=== PATIENT | male | born 1990 | race Caucasian/White ===

== ENCOUNTER 2017-10-06 01:01 | Emergency (ER) | payer BC ==
[~2017-10-06] VITALS: Ht 180.3 cm; Wt 84.1 kg
[2017-10-06 01:05] VITALS: BP 136/80; TEMP 99.1
[2017-10-06] MEDS ORDERED: GLUCOSAMINE 1000 PO (01:08)
[2017-10-06] MEDS ORDERED: MOBIC 7.5MG7.5 MG PO (01:08)
[2017-10-06] MEDS ORDERED: MULTIVITAMIN1 CTB PO (01:08)
[2017-10-06 01:34] LABS: HEMATOCRIT 43.3 % (42.0-52.0); HEMOGLOBIN 15.1 g/dl (13.5-18.0); MEAN CELL VOLUME 92 fl (80.0-100.0); MEAN CORPUSCULAR HEMOGLOBIN 32 pg (27.0-31.0); MEAN CORPUSCULAR HGB CONC 35 g/dl (33.0-37.0); MEAN PLATELET VOLUME 10.2 fl (7.4-10.4); PLATELET COUNT 283 K/mm3 (130-400); RED BLOOD COUNT 4.73 M/mm3 (4.20-5.60); REDCELL DISTRIBUTION WIDTH-CV 12.4 % (11.5-14.5)
[2017-10-06 01:43] LABS: ALBUMIN 4.7 gm/dL (3.5-5.0); BILIRUBIN,TOTAL 0.6 mg/dL (0.0-1.0); CALCIUM 9.7 mg/dL (8.4-10.2); CREATININE, serum 1.15 mg/dL (0.66-1.25); POTASSIUM 4.3 mmol/L (3.4-5.0); TOTAL PROTEIN 7.9 gm/dL (6.4-8.2)
[2017-10-06 01:44] LABS: BAND 41 % (0-10); LYMPHOCYTE 19 % (20.0-51.0); NEUTROPHILS 29 % (42.0-75.2); PLATELET ESTIMATE NORMAL (NORMAL)
[2017-10-06 02:07] LABS: COLLECTION METHOD CLEAN CATCH
[2017-10-06 02:14] LABS: MUCOUS Present /lpf; PH 6 (5-8); SQUAMOUS EPITHELIAL None Seen /hpf; URINE APPEARANCE Clear; URINE BACTERIA None Seen /hpf; URINE BILIRUBIN Negative (NEGATIVE); URINE BLOOD Negative (NEGATIVE); URINE COLOR Yellow; URINE GLUCOSE Negative (NEGATIVE); URINE KETONE Negative (NEGATIVE); URINE LEUKOCYTE ESTERASE Negative (NEGATIVE); URINE NITRATE Negative (NEGATIVE); URINE PROTEIN(semi-quant) Negative (NEGATIVE); URINE RBC 0-2 /hpf; URINE UROBILINOGEN Negative (NEGATIVE)
[2017-10-06] MEDS ORDERED: CIPRO 500MG TA500 MG PO (03:17)
[2017-10-06] MEDS ORDERED: FLAGYL500 MG PO (03:17)
[2017-10-06 03:44] VITALS: PULSE 80
== END 2017-10-06 03:47 | disposition home or self-care (01) ==
LOC: COL.ER 01:01
PROVIDERS: Emergency Medicine
DX: K52.9 Noninfective gastroenteritis and colitis, unspecified (principal); Z87.19 Personal history of other diseases of the digestive system; Z90.49 Acquired absence of other specified parts of digestive tract
CPT/HCPCS: J2765; J3010; J7030; Q9967

== ENCOUNTER 2017-10-08 06:18 | Day surgery (SDC) | payer BC ==
[~2017-10-08] VITALS: Ht 180.3 cm; Wt 82.9 kg
[~2017-10-08 06:18] MED LIST: CIPRO 500MG TA500 MG PO; FLAGYL500 MG PO; GLUCOSAMINE 1000 PO; MOBIC 7.5MG7.5 MG PO; MULTIVITAMIN1 CTB PO
[2017-10-08 06:34] VITALS: BP 149/90; PULSE 78; TEMP 98.4
[2017-10-08] MEDS ORDERED: CIPRO 500MG TA500 MG PO (07:02)
[2017-10-08] MEDS ORDERED: FLAGYL500 MG PO (07:03)
[2017-10-08 08:10] VITALS: BP 117/76; PULSE 67; TEMP 98
[2017-10-08 08:15] VITALS: BP 122/79; PULSE 70
[2017-10-08] MEDS ORDERED: LIALDA 1.2 GM1.2 GM PO (08:22)
[2017-10-08 08:30] VITALS: BP 117/69; PULSE 63
[2017-10-08 08:45] VITALS: BP 113/52; PULSE 70
== END 2017-10-08 09:10 | disposition home or self-care (01) ==
LOC: SDCO 06:18
DX: K51.90 Ulcerative colitis, unspecified, without complications (principal); R19.7 Diarrhea, unspecified; R93.3 Abnormal findings on diagnostic imaging of other parts of digestive tract; Z90.49 Acquired absence of other specified parts of digestive tract
CPT/HCPCS: J2250; J2405; J3010; J7030

== ENCOUNTER 2018-12-12 05:08 | Observation (INO) | payer BC ==
[2018-12-12] VITALS (9 sets, daily range): BP systolic 17–117; BP diastolic 46–68; PULSE 53–72; TEMP 98.3–99
[~2018-12-12] VITALS: Ht 177.8 cm; Wt 80.7 kg
[~2018-12-12 05:08] MED LIST changes: +LIALDA 1.2 GM1.2 GM PO
[2018-12-12 05:36] LABS: BASO # 0.1 (0.0-0.2); BASO % 0.5 % (0.0-2.0); EOS # 0.2 (0.0-0.7); EOS % 1.2 % (0-4.0); GRAN # 12.1 (1.4-6.5); GRAN % 77.6 % (42.2-75.2); HEMATOCRIT 43.4 % (42.0-52.0); HEMOGLOBIN 15.1 g/dl (13.5-18.0); LYMPH # 2.1 (1.2-3.4); LYMPH % 13.5 % (20.0-51.0); MEAN CELL VOLUME 95 fl (80.0-100.0); MEAN CORPUSCULAR HEMOGLOBIN 33 pg (27.0-31.0); MEAN CORPUSCULAR HGB CONC 35 g/dl (33.0-37.0); MEAN PLATELET VOLUME 10.1 fl (7.4-10.4); MONO # 1.1 (0.1-0.6); MONO % 6.9 % (1.7-9.3); PLATELET COUNT 231 K/mm3 (130-400); RED BLOOD COUNT 4.59 M/mm3 (4.20-5.60); REDCELL DISTRIBUTION WIDTH-CV 11.9 % (11.5-14.5)
[2018-12-12 05:42] LABS: ALBUMIN 4.5 gm/dL (3.5-5.0); BILIRUBIN,TOTAL 0.7 mg/dL (0.0-1.0); CALCIUM 9.3 mg/dL (8.4-10.2); CREATININE, serum 1.22 (0.66-1.25); TOTAL PROTEIN 7.5 gm/dL (6.4-8.2)
[2018-12-12 08:01] LABS: COLLECTION METHOD CLEAN CATCH
[2018-12-12 08:08] LABS: PH 5 (5-8); SQUAMOUS EPITHELIAL None Seen /hpf; URINE APPEARANCE Clear; URINE BACTERIA None Seen /hpf; URINE BILIRUBIN Negative (NEGATIVE); URINE BLOOD Negative (NEGATIVE); URINE COLOR Yellow; URINE GLUCOSE Negative (NEGATIVE); URINE KETONE Negative (NEGATIVE); URINE LEUKOCYTE ESTERASE Negative (NEGATIVE); URINE NITRATE Negative (NEGATIVE); URINE PROTEIN(semi-quant) Negative (NEGATIVE); URINE RBC 0-2 /hpf; URINE UROBILINOGEN Negative (NEGATIVE)
[2018-12-12] MEDS ORDERED: APRISO0.375 GM PO (08:20)
[2018-12-12] MEDS ORDERED: MULTIPLE VITAMI1 TA5 PO (08:21)
[2018-12-12] MEDS ORDERED: OMEGA-3 1000 MG1 CAP PO (08:21)
[2018-12-12] MEDS ORDERED: CULTURELLE CAP1 EAC1 PO (08:21)
--- NOTE | 2018-12-12 09:31 | NUR ---
states pain is starting to return, medicated with dilaudid 0.5mg slow IV, will let him try and sleep
--- NOTE | 2018-12-12 11:00 | NUR ---
[id number] to be sleeping, in bed with lights out, eyes closed and resp quiet and easy
--- NOTE | 2018-12-12 11:55 | NUR ---
awake now and resting in bed, explained to he and his we are still waiting on Dr Fair and unsure when he will be here, verbalizes understanding
--- NOTE | 2018-12-12 12:40 | NUR ---
resting in bed, consent for surgery signed
--- NOTE | 2018-12-12 12:52 | NUR ---
to surgery per bed
--- NOTE | 2018-12-12 14:15 | NUR ---
remains in surgery
--- NOTE | 2018-12-12 15:05 | NUR ---
returned to room per bed from PACU, awake and alert, IV infusing per dial-a-flow and rate set at 100ml/hr, O2 sat 95% on room air, abdomen with 3 lap sites covered with bandaids are CD&I, c/o minimal discomfort to abdomen, will provide water and if tolerates wel with instruct on ordering something to eat, at bedside
--- NOTE | 2018-12-12 15:15 | NUR ---
takes water and tolerates well, talking on phone
--- NOTE | 2018-12-12 15:30 | NUR ---
has tolerated water well and is ready for something more to eat, instructed on ordering something to eat
--- NOTE | 2018-12-12 15:45 | NUR ---
resting in bed has ordered something to eat
--- NOTE | 2018-12-12 16:45 | NUR ---
had regular food and tolerated well, denies needs
--- NOTE | 2018-12-12 17:01 | NUR ---
assisted up to bathroom and moves well with only minimal pain/discomfort, voided qs and then back to bed,
[2018-12-12] MEDS ORDERED: NORCO 325 MG-51 TAB PO (17:25)
--- NOTE | 2018-12-12 17:25 | NUR ---
Dr Fair in to see patient, will plan discharge this evening
--- NOTE | 2018-12-12 17:55 | NUR ---
discharge instructions given to patient and his , verbalizes understanding
--- NOTE | 2018-12-12 18:00 | NUR ---
discharged per WC
== END 2018-12-12 18:00 | disposition home or self-care (01) ==
LOC: COL.ER 05:08 → SURG 07:19
PROVIDERS: Emergency Medicine; ADMIT Surgery
DX: K35.80 Unspecified acute appendicitis (principal); Z90.49 Acquired absence of other specified parts of digestive tract; K51.90 Ulcerative colitis, unspecified, without complications; Z79.899 Other long term (current) drug therapy
CPT/HCPCS: G0378; J0690; J1100; J1170; J1885; J2405; J2543; J2704; J2765; J3010; J7030; J7120; Q9967